=== PATIENT | female | born 1995 | race Caucasian/White ===

== ENCOUNTER 2019-08-28 14:22 | Emergency (ER) | payer BC ==
[~2019-08-28] VITALS: Ht 177.8 cm; Wt 122.0 kg
[2019-08-28 14:26] VITALS: Ht 177.8 cm; Wt 122.0 kg
[2019-08-28 15:55] LABS: BASOPHIL % 0.3 % (0-2); PLATELET COUNT 357 x10^3mcL (130-400); RED CELL DISTRIBUTION WIDTH 13.2 % (11.5-14.5)
[2019-08-28 16:07] LABS: CALCIUM 9.8 mg/dL (8.5-10.1); CARBON DIOXIDE 28.3 mmol/L (21-32); CHLORIDE SERUM 105 mmol/L (98-107); CREATININE SERUM 0.8 mg/dL (0.6-1.0); GFR1 > 60 mL/min; GLUCOSE SERUM 89 mg/dL (74-106); SODIUM SERUM 141 mmol/L (136-145)
[2019-08-28 20:04] VITALS: BP 126/58
== END 2019-08-28 20:04 | disposition home or self-care (01) ==
LOC: ED 14:22
PROVIDERS: Emergency Medicine
DX: R07.89 Other chest pain (principal); F41.9 Anxiety disorder, unspecified; G89.29 Other chronic pain
CPT/HCPCS: 85378